=== PATIENT | male | born 1975 | race Caucasian/White ===

== ENCOUNTER 2019-01-27 09:17 | Day surgery (SDC) | payer OTHER ==
[~2019-01-27] VITALS: Ht 188 cm; Wt 87.1 kg
[~2019-01-27 09:17] MED LIST: CELEBREX200 MG PO; PANTOPRAZOLE SO40 MG PO
--- NOTE | 2019-01-27 11:14 | NUR ---
01/27/19 1114 Lauryn Schmitt 1107 PT ARRIVED TO PACU ON 3L VIA NC, PT ASLEEP OFF AND ON. PT DENIES NAUSEA AND PAIN. PT REORIENTED TO PACU. RESP EVEN AND UNLABORED. 1109 O2 REMOVED. 1113 PT WOKE AND PLAN OF CARE DISCUSSED. PT BACK TO SLEEP.
--- NOTE | 2019-01-27 12:12 | NUR ---
ICED WATER GIVEN. CALL LIGHT W/IN REACH. SPOUSE @ BEDSIDE.
--- NOTE | 2019-01-28 06:01 | OR ---
[facility] [address], [place] [address] Signed DATE OF OPERATION: 01/27/2019 SURGEON: Tony Pfeiffer MD PREOPERATIVE DIAGNOSES: 1. Generalized abdominal pain with nausea and bloating. 2. Father with history of colon polyps in his 60s. 3. A brother with precancerous colonic polyps at age 43. 4. Paternal 1st cousin with colon cancer at age 46. 5. Weight loss. POSTOPERATIVE DIAGNOSES: 1. Mild diffuse gastritis. 2. Unremarkable colonoscopy. PROCEDURES PERFORMED: 1. EGD with CLOtest and biopsies of the duodenum, pyloric bulb, antrum, body and GE junction. 2. Colonoscopy with cold biopsies in the terminal ileum and throughout colon. ESTIMATED BLOOD LOSS: None. INDICATIONS: Jameel is a 43-year-old gentleman, asked to see me for upper and lower endoscopy. He has had a lot of trouble with generalized abdominal pain, nausea and bloating. He has been losing weight. He said when he eats, it can hurt within 20 minutes or might be an hour later. He can often see yellow in his stool. He said it has bothered him for quite a long time, but it has been worse the last couple years. He had been on omeprazole and then switched over to Protonix. The Protonix seems to be better. He said if he stops the Protonix, his stomach really bothers him. He does have a father with a history of colonic polyps in his 60s. His 43-year-old brother just had precancerous polyps removed as well. He has a paternal 1st cousin who had colon cancer at age 46. Jameel told me he has been losing weight. In the office, I gave Jameel pamphlet on both upper and lower endoscopy and we looked at that together in detail. He understands the nature of the 2 tests along with the risks including, but not limited to gas, bloating, crampy abdominal pain, bleeding, perforation, requiring surgery, and missed diagnosis. He also understands the need for IV conscious sedation. We also talked about his gallbladder as well as possible irritable bowel syndrome. He had expressed understanding and wished to proceed. Electronically Signed By: TONY PFEIFFER MD 01/28/19 0601 PATIENT NAME: JAMEEL LINK OPERATIVE REPORT DATE OF : 79 REPORT #: [id number] PHYSICIAN: TONY PFEIFFER MD PCP: TONY ALAS MD REPORT IS CONFIDENTIAL AND NOT TO BE RELEASED WITHOUT AUTHORIZATION [facility] [address] [place] [id number] Signed DESCRIPTION OF PROCEDURE: Jameel was taken into our endoscopy suite and placed in the supine position. The posterior oropharynx was anesthetized with Hurricaine spray. He was given a total of 13 mg of Versed and 200 mcg of fentanyl to cover both cases. A bite block was utilized for the upper endoscopy. The adult gastroscope was introduced and advanced out into the third portion of the duodenum under direct visualization without difficulty. The duodenum was unremarkable. We took a biopsy of the duodenum for history of diarrhea. Really not much in the pyloric bulb. We went and took a biopsy from the pyloric bulb for pathologic review. The stomach showed some very mild superficial erythematous changes. We went and took a biopsy of the antrum for CLOtest as well as pathologic review. We took an additional biopsy of the body as well. Upon retroflexion of scope, he really does not seem to have a hiatal hernia. He tells me he has no acid reflux. There were no gastric or esophageal varices. No ulcerations. The scope was withdrawn up through the GE junction, which was compliant without stricture. The Z-line remains intact. The entire esophagus was unremarkable. After this, the gas was suctioned out and the gastroscope removed. Jameel tolerated procedure quite well. Jameel was then rotated into the left lateral decubitus position. He was maintained on IV sedation with Versed and fentanyl. A digital rectal exam was performed and this was unremarkable. Really, no evidence of any external hemorrhoids and he has good sphincter tone. Prostate was smooth and unremarkable. After this, the adult colonoscope was introduced and advanced all around into the cecum. His prep was quite excellent. We turned the scope into the terminal ileum and went up about 15 cm. It looked quite healthy. We went ahead and took a couple of biopsies because of the history of diarrhea. The scope was withdrawn back into the colon and slowly withdrawn. His entire colon appeared unremarkable. We took several random biopsies throughout the colon for pathologic review. The rectum was unremarkable. Upon retroflexion of the scope in the rectum, there was no additional pathology noted above the anal canal. After this, the gas was suctioned out and the colonoscope removed. Jameel tolerated the procedure quite well. RECOMMENDATIONS: I will see Jameel back in my office in 7 to 14 days to review his biopsy results. He has to keep in mind his gallbladder and possibly irritable bowel syndrome. Tony Pfeiffer MD Electronically Signed By: TONY PFEIFFER MD 01/28/19 0601 PATIENT NAME: LINK,JAMEEL DON OPERATIVE REPORT DATE OF : 79 REPORT #: [id number] PHYSICIAN: TONY PFEIFFER MD PCP: TONY ALAS MD REPORT IS CONFIDENTIAL AND NOT TO BE RELEASED WITHOUT AUTHORIZATION [facility] [address] [place], [place] [address] Signed ALB/MODL /[id number] cc: MD Tony Marie MD Copies: TONY PFEIFFER MD ~ Electronically Signed By: TONY PFEIFFER MD 01/28/19 0601 PATIENT NAME: JAMEEL LINK OPERATIVE REPORT DATE OF : 79 REPORT #: [id number] PHYSICIAN: TONY PFEIFFER MD PCP: TONY ALAS MD REPORT IS CONFIDENTIAL AND NOT TO BE RELEASED WITHOUT AUTHORIZATION
== END 2019-01-27 13:00 | disposition home or self-care (01) ==
LOC: DS 09:17 → OPS 09:17 → DS 10:30 → OPS 13:00
PROVIDERS: Colon & Rectal Surgery
PROC: 0DB68ZX Excision of Stomach, Via Natural or Artificial Opening Endoscopic, Diagnostic (ICD-10-PCS; 2019-01-27)
PROC: 0DB48ZX Excision of Esophagogastric Junction, Via Natural or Artificial Opening Endoscopic, Diagnostic (ICD-10-PCS; 2019-01-27)
PROC: 0DBB8ZX Excision of Ileum, Via Natural or Artificial Opening Endoscopic, Diagnostic (ICD-10-PCS; 2019-01-27)
PROC: 0DBE8ZX Excision of Large Intestine, Via Natural or Artificial Opening Endoscopic, Diagnostic (ICD-10-PCS; 2019-01-27)
PROC: 0DB98ZX Excision of Duodenum, Via Natural or Artificial Opening Endoscopic, Diagnostic (ICD-10-PCS; principal; 2019-01-27 10:30)
PROC: 0DB78ZX Excision of Stomach, Pylorus, Via Natural or Artificial Opening Endoscopic, Diagnostic (ICD-10-PCS; 2019-01-27 10:30)
DX: K29.50 Unspecified chronic gastritis without bleeding (principal); K29.80 Duodenitis without bleeding; K20.9 Esophagitis, unspecified; R19.7 Diarrhea, unspecified; R63.4 Abnormal weight loss; Z83.71 Family history of colonic polyps; Z80.0 Family history of malignant neoplasm of digestive organs; Z88.1 Allergy status to other antibiotic agents
CPT/HCPCS: 86677; 99153; G0500; J2250; J3010; J7120